=== PATIENT | male | born 1995 | race Caucasian/White ===

== ENCOUNTER 2017-05-26 16:51 | Emergency (ER) | payer MEDICAID, OTHER ==
[~2017-05-26] VITALS: Ht 185.4 cm; Wt 92.2 kg
[2017-05-26 17:04] VITALS: BP 115/74
[2017-05-26] MEDS ORDERED: DIPHENHYDRAMINE 25 MG CAPSULE ONE (17:27)
[2017-05-26] MEDS ORDERED: DIPHENHYDRAMINE 25 MG CAPSULE PO ONE (18:00)
== END 2017-05-26 17:36 | disposition home or self-care (01) ==
LOC: ED 17:30
DX: H65.03 Acute serous otitis media, bilateral (principal); J00 Acute nasopharyngitis [common cold]; F17.200 Nicotine dependence, unspecified, uncomplicated
CPT/HCPCS: 99283; Q0163